=== PATIENT | female | born 1925 | race Caucasian/White ===

== ENCOUNTER → 2016-06-26 | Outpatient (CLI) | payer OTHER ==
[~2016-06-26] MED LIST: ACET325T96 PO; ASPEC81 PO; CALC500C3 PO; CALC8.5C PO; CARB25TA12 PO; CLBPO15 TOP; DIGO0.122 PO; MECL1TAB40 PO; METO50TA7 PO; MULT-506 PO; RMR15 PO; SENN-91 PO; TRAM-10 PO; VITA400C15 PO
[2016-06-26 20:15] LABS: BLOOD UREA NITROGEN 40 mg/dl (7-18); CALCIUM 8.5 mg/dl (8.5-10.1); CARBON DIOXIDE 28 mmol/L (21-32); CHLORIDE 107 mmol/L (98-107); GLUCOSE 103 mg/dl (70-99); POTASSIUM 5.5 mmol/L (3.5-5.1); SODIUM 141 mmol/L (136-145)
[2016-06-26 20:22] LABS: ALB/GLOB RATIO 0.9 (0.9-2); ALKALINE PHOSPHATASE 90 U/L (45-117); ALT/SGPT 14 U/L (12-78); AST/SGOT 28 U/L (15-37)
== END | disposition home or self-care (01) ==
LOC: C.LABPVFM 14:39
PROVIDERS: ATTEND Family Medicine
DX: I49.9 Cardiac arrhythmia, unspecified (principal)

== ENCOUNTER → 2016-06-28 | Outpatient (CLI) | payer OTHER ==
[2016-06-28 17:45] LABS: BLOOD UREA NITROGEN 36 mg/dl (7-18); BUN/CREATININE RATIO 30.3 (10-20); CALCIUM 8.8 mg/dl (8.5-10.1); CARBON DIOXIDE 29 mmol/L (21-32); CHLORIDE 106 mmol/L (98-107); GLUCOSE 93 mg/dl (70-99); POTASSIUM 5.3 mmol/L (3.5-5.1); SODIUM 139 mmol/L (136-145)
== END | disposition home or self-care (01) ==
LOC: C.LABPVFM 11:17
PROVIDERS: ATTEND Internal Medicine Cardiovascular Disease
DX: E87.5 Hyperkalemia (principal)

== ENCOUNTER → 2016-08-21 | Outpatient (CLI) | payer OTHER ==
--- NOTE | 2016-08-21 14:19 | DIAGNOSTIC IMAGING REPORT ---
THORACOLUMBAR SPINE 2 VIEWS CLINICAL HISTORY: Back pain. COMPARISON STUDY: None FINDINGS: The bones are osteopenic. There are multiple vertebral body compression deformities. These involve the T8, T9, T10, and L1 levels. The findings are most severe at the T9 and T10 levels. IMPRESSION: Osteopenia and multiple thoracic compression deformities most severe at the T9 and T10 levels. Electronically signed by: Galdino Cali M.D. 08/21/2016 2:18 PM Dictated Date/Time: 08/21/2016 2:15 PM
--- NOTE | 2016-08-21 14:39 | DIAGNOSTIC IMAGING REPORT ---
LEFT RIBS UNILATERAL WITH PA CHEST CLINICAL HISTORY: Left rib pain. COMPARISON STUDY: Chest radiograph July 03, 2013. FINDINGS: There is no pneumothorax or pleural effusion. There are several old left lower anterior rib fractures. No acute rib fractures are identified by radiography. Several thoracic spine compression fractures are better depicted on the thoracic spine radiographs. There is no evidence of pulmonary edema. 1.5 cm nodular density within the right midlung is noted. There is lower mediastinal/left infrahilar fullness. This may be artifactual. IMPRESSION: 1. No pneumothorax. No acute left rib fractures identified. Several old left-sided rib fractures. 2. 1.5 cm nodular density within the right midlung. This could reflect a pulmonary nodule, airspace disease or artifact. A chest CT with contrast is recommended. 3. Lower mediastinal/left infrahilar fullness. This is probably artifactual/related to normal structures although can be assessed on CT. Electronically signed by: Kal Gentile M.D. 08/21/2016 2:38 PM Dictated Date/Time: 08/21/2016 2:27 PM
== END | disposition home or self-care (01) ==
LOC: C.RADPV 13:12
PROVIDERS: ATTEND Family Medicine
DX: R07.81 Pleurodynia (principal); M54.6 Pain in thoracic spine; M48.2 Kissing spine

== ENCOUNTER → 2016-09-16 | Outpatient (CLI) | payer OTHER ==
[2016-09-16 13:09] LABS: BLOOD UREA NITROGEN 27 mg/dl (7-18); BUN/CREATININE RATIO 20.9 (10-20); CARBON DIOXIDE 27 mmol/L (21-32); CHLORIDE 105 mmol/L (98-107); GLUCOSE 108 mg/dl (70-99); POTASSIUM 4.6 mmol/L (3.5-5.1); SODIUM 141 mmol/L (136-145)
== END | disposition home or self-care (01) ==
LOC: C.LABSALHI 15:06
PROVIDERS: ATTEND Nurse Practitioner Family
DX: I48.91 Unspecified atrial fibrillation (principal)

== ENCOUNTER → 2016-12-13 | Outpatient (CLI) | payer OTHER ==
[~2016-12-13] MED LIST changes: -ASPEC81 PO; -MECL1TAB40 PO; -VITA400C15 PO
[2016-12-14 13:31] LABS: URINE APPEARANCE CLEAR (CLEAR); URINE BILIRUBIN NEG (NEG); URINE COLOR YELLOW; URINE NITRITE NEG (NEG); URINE PH 6.5 (4.5-7.5); URINE SPECIFIC GRAVITY 1.018 (1.000-1.030); UROBILINOGEN NEG (NEG); ZZUR CULT IF INDIC CLEAN CATCH NO
[2016-12-14 13:33] LABS: MANUAL MICROSCOPIC REQUIRED? NO; REVIEW REQ? NO
== END | disposition home or self-care (01) ==
LOC: C.LABSALHI 16:15
PROVIDERS: ATTEND Nurse Practitioner
DX: R41.82 Altered mental status, unspecified (principal)

== ENCOUNTER → 2017-01-23 | Outpatient (CLI) | payer OTHER | END | disposition home or self-care (01) | LOC: C.LABSALHI 09:23 | PROVIDERS: ATTEND Nurse Practitioner Family | DX: R68.89 Other general symptoms and signs (principal) ==

== ENCOUNTER → 2017-02-24 | Outpatient (CLI) | payer OTHER ==
[2017-02-24 12:33] LABS: BASO % 0.3 %; BASO ABS # 0.02 K/uL (0-0.2); COMPLETE YES; EOS % 1.1 %; IG% 0.3 %; LYMPH % 22.8 %; LYMPH ABS # 1.67 K/uL (1.2-3.4); MEAN CORPUSCULAR HEMOGLOBIN 30.3 pg (25-34); MEAN CORPUSCULAR HGB CONC 31.8 g/dl (32-36); MEAN PLATELET VOLUME 10.8 fL (7.4-10.4); MONO % 11.5 %; PLATELET COUNT 183 K/uL (130-400); WHITE BLOOD COUNT 7.31 K/uL (4.8-10.8)
[2017-02-24 13:09] LABS: ALT/SGPT 7 U/L (12-78); BLOOD UREA NITROGEN 30 mg/dl (7-18); BUN/CREATININE RATIO 23.6 (10-20); CALCIUM 8.8 mg/dl (8.5-10.1); CARBON DIOXIDE 28 mmol/L (21-32); CHLORIDE 103 mmol/L (98-107); CREATININE 1.26 mg/dl (0.60-1.20); GLUCOSE 100 mg/dl (70-99); POTASSIUM 4.3 mmol/L (3.5-5.1); SODIUM 137 mmol/L (136-145)
[2017-02-24 13:12] LABS: ALB/GLOB RATIO 0.8 (0.9-2); ALKALINE PHOSPHATASE 95 U/L (45-117); AST/SGOT 26 U/L (15-37)
== END | disposition home or self-care (01) ==
LOC: C.LABSALHI 12:55
PROVIDERS: ATTEND Physician Assistant
DX: G20 Parkinson's disease (principal)